=== PATIENT | female | born 1985 | race Caucasian/White ===

== ENCOUNTER → 2021-01-13 15:18 | Outpatient (CLI) | payer BC, SELFPAY ==
--- NOTE | ~2021-01-13 | CT_ITS ---
EXAMINATION: CT sinus wo con DATE: 01/13/2021 15:31 INDICATION: Chronic recurrent sinusitis TECHNIQUE: Computed tomography (CT) of the paranasal sinuses was performed without contrast. Iterativ e reconstruction technique was employed. Exam dose: 289.74 mGy-cm total exam DLP. COMPARISON: None FINDINGS: There is prominent soft tissue swelling of the nasal turbinates bilaterally. The nasal sep jorge is virtually midline. There are bilateral nasal antral windows, resection of the uncinate processes. Status post bilateral partial ethmoidectomies. There is minimal mucoperiosteal thickening of the maxillary sinuses. Moderately prominent mucoperiost eal thickening of the left sphenoid sinus. The remaining paranasal sinuses are clear. The mastoid air cells are normally developed and aerated. Middle and inner ear apparatus appear normal. IMPRESSION: Moderately prominent mucoperiosteal thickening of the left sphenoid sinus and minimal mu coperiosteal thickening of the maxillary sinuses Status post bilateral nasal antral windows and partial ethmoidectomies Reviewed, dictated and finalized at [facility]. Reviewed, dictated and finalized at [facility]. 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
== END ==
PROVIDERS: Visit Provider Physician Assistant
DX: J32.0 Chronic maxillary sinusitis (principal); Z98.890 Other specified postprocedural states
CPT/HCPCS: 70486

== ENCOUNTER 2021-08-11 10:21 | Outpatient (CLI) | payer BC, SELFPAY ==
--- NOTE | ~2021-08-11 | XR_ITS ---
EXAMINATION: XR chest 2V 08/11/2021 10:51 INDICATION: Covid positive. Hemoptysis. PROCEDURE: 2 view chest COMPARISON: Comparison to multiple prior studies sequentially, with oldest reviewed study dated 01/18. FINDINGS: The lungs are clear. The cardiomediastinal silhouette is within normal limits. There are no pleural effusions. There is no pneumothorax suspected. IMPRESSION: 1: NO ACUTE CARDIOPULMONARY DISEASE. Reviewed, dictated and finalized at [facility].
== END 2021-08-11 10:22 | disposition home or self-care (01) ==
LOC: ANHIMG 10:24
PROVIDERS: PCP Physician Assistant; Visit Provider Physician Assistant
DX: U07.1 COVID-19 (principal); R04.2 Hemoptysis
CPT/HCPCS: 71046

== ENCOUNTER → 2023-01-22 16:23 | Outpatient (CLI) | payer BC, SELFPAY ==
--- NOTE | ~2023-01-22 | XR_ITS ---
EXAMINATION: XR foot LT min 3V DATE: 01/22/2023 16:37 INDICATION: Left foot pain TECHNIQUE: Dorsoplantar, lateral, and 2 oblique views of the left foot were obtained. COMPARISON: None. FINDINGS: There is an traumatic, closed, oblique fracture at the plantar base of the second middle ph alanx which extends to the proximal interphalangeal joint. No additional fracture is identified. Ther e is soft tissue swelling of the second toe. IMPRESSION: 1. Intra-articular fracture at the plantar base of the second middle phalanx. Reviewed, dictated and finalized at [facility]. DIGGER
== END ==
PROVIDERS: PCP Physician Assistant; Visit Provider Physician Assistant
DX: S92.522A Displaced fracture of middle phalanx of left lesser toe(s), initial encounter for closed fracture (principal); T14.90XA Injury, unspecified, initial encounter
CPT/HCPCS: 73630

== ENCOUNTER 2024-10-27 12:56 | Outpatient (CLI) | payer OTHER, SELFPAY ==
--- NOTE | ~2024-10-27 | CT_ITS ---
EXAMINATION: CT sinus wo con DATE: 10/27/2024 13:27 INDICATION: Chronic sinusitis TECHNIQUE: Computed tomography (CT) of the paranasal sinuses was performed without contrast. Iterativ e reconstruction technique was employed. Exam dose: 274.70 mGy-cm total exam DLP. COMPARISON: 01/13/2021 CT sinuses FINDINGS: The nasal septum is essentially midline. There is prominent soft tissue swelling of the brigida al turbinates bilaterally. Postoperative change including bilateral nasal antral windows and resection of the uncinate processes . The paranasal sinuses are clear. The mastoid air cells are well-developed and aerated. Middle and inner ear apparatus appear unremarkable. IMPRESSION: Bilateral nasal antral windows, resection of both uncinate processes Patent paranasal sinuses and mastoid air cells Reviewed, dictated and finalized at [facility]. Reviewed, dictated and finalized at [facility]. 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
== END 2024-10-27 12:57 | disposition home or self-care (01) ==
LOC: MICIMG 12:56
PROVIDERS: PCP Physician Assistant; Visit Provider Physician Assistant
DX: J32.9 Chronic sinusitis, unspecified (principal); Z98.890 Other specified postprocedural states
CPT/HCPCS: 70486

== ENCOUNTER 2025-03-21 15:24 | Outpatient (CLI) | payer OTHER, SELFPAY ==
--- NOTE | ~2025-03-21 | XR_ITS ---
XR chest 2V Ordering provider: Josselin Barker, JUANA History: 39 years Female with . LOW GRADE FEVER . Comparison: August 11, 2021 FINDINGS: MEDIASTINUM: The cardiac silhouette is not enlarged. LUNGS: No infiltrates, effusions or pneumothorax. OTHER: No free air under the diaphragm. IMPRESSION: No acute cardiopulmonary pathology. Reviewed, dictated and finalized at [facility].
== END 2025-03-21 15:25 | disposition home or self-care (01) ==
PROVIDERS: PCP Physician Assistant; Visit Provider Physician Assistant
DX: R50.9 Fever, unspecified (principal)
CPT/HCPCS: 71046